=== PATIENT | male | born 1955 | race Caucasian/White ===

== ENCOUNTER 2018-06-16 11:45 | Inpatient (IN) | payer BC ==
[2018-07-11 12:58] VITALS: BMI 34.4
[2018-07-17] MEDS ORDERED: MELOXICAM 7.5 MG TAB PO ONE (05:00)
[2018-07-17] MEDS ORDERED: ACETAMINOPHEN TAB 500 MG TAB PO ONE (05:00)
[2018-07-17] MEDS ORDERED: MIDAZOLAM (PF) 2 MG/2 ML VIAL IV PRN (07:10)
[2018-07-17] MEDS ORDERED: HYDROmorphone 0.5 MG/0.5 ML SYRINGE IVP PRN ×4 (07:10→14:52)
[2018-07-17] MEDS ORDERED: SCOPOLAMINE 1.5MG/72HR PATCH TRANSDERM ONE (07:10)
[2018-07-17] MEDS ORDERED: DEXAMETHASONE SOD PHOSPHATE 10 MG/ML 1 ML VIAL IV ONE (07:10)
[2018-07-17] MEDS ORDERED: ONDANSETRON 4 MG/2 ML VIAL IVP ONE (07:10)
[2018-07-17] MEDS ORDERED: ROPIVACAINE 246.25 MG, EPINEPHrine 0.5 MG, KETOROLAC 30 MG, cloNIDine HCL/PF 80 MCG, WA... MISCELLANE ONE ×5 (10:28)
[2018-07-17] MEDS ORDERED: LACTATED RINGERS 1,000 ML IV ONE (12:51)
[2018-07-17] MEDS ORDERED: fentaNYL (PF) 50 MCG/ML 2 ML AMP IVP ONE (13:20)
[2018-07-17] MEDS ORDERED: ROPIVACAINE 1,100 MG, SODIUM CHLORIDE 0.9% 500 ML 330 ML MISCELLANE PRN ×2 (13:45)
--- NOTE | 2018-07-17 13:48 | P.ONQ ---
Anesthesiology Proc Note - PNB - Peripheral Nerve Block Performed Left Adductor Canal Infusion Time Out Performed: Yes Procedure Start Time: 13:25 Procedure Stop Time: 13:38 Indication: Acute Post-Operative Pain, Analgesia, Requested by physician Sedation Type: Sedate with meaningful contact maintained Preparation: Sterile Dressing Position: Supine Catheter: Indwelling Needle Size: 100mm (4") Needle Gauge: 20 Technique: Ultrasound Injectate: 0.5% Ropivacaine (see comment for volume) Blood Aspirated: No Pain Paresthesia on Injection Noted: No Resistance on Injection: Normal Events: Uneventful and Well Tolerated (30 ml solution)
[2018-07-17] MEDS ORDERED: LIDOCAINE 1% INJ 10MG/ML (20 ML MDV) ONE (14:45)
[2018-07-17] MEDS ORDERED: ceFAZolin 3,000 MG in SODIUM CHLORIDE 0.9% IRRIGATIO 3,000 ML IRRIGATION ONE (14:45)
[2018-07-17] MEDS ORDERED: SODIUM CHLORIDE 0.9% 100 ML BAG ONE (14:45)
[2018-07-17] MEDS ORDERED: PROPOFOL 10 MG/ML 20 ML VIAL IV ONE (14:45)
[2018-07-17] MEDS ORDERED: MIDAZOLAM 2 MG/2 ML VIAL ONE (14:45)
[2018-07-17] MEDS ORDERED: TRANEXAMIC ACID 1,000 MG/10 ML VIAL ONE (14:45)
[2018-07-17] MEDS: ceFAZolin IN SWFI 2 GM/20 ML SYRINGE IVP ONE ×2 (14:48→15:03)
[2018-07-17] MEDS ORDERED: BISACODYL 10 MG SUPP RECTAL PRN (14:52)
[2018-07-17] MEDS ORDERED: DIAZEPAM 5 MG TAB PO PRN (14:52)
[2018-07-17] MEDS ORDERED: HYDROcodone/APAP 5-325MG 1 EACH TAB PO PRN (14:52)
[2018-07-17] MEDS ORDERED: hydrOXYzine PAMOATE 25 MG CAP PO PRN (14:52)
[2018-07-17] MEDS ORDERED: NALOXONE 0.4 MG/ML 1 ML VIAL IV PRN (14:52)
[2018-07-17] MEDS ORDERED: ONDANSETRON 4 MG/2 ML VIAL IVP PRN (14:52)
[2018-07-17] MEDS ORDERED: NA PHOS,M-B/NA PHOS,DI-BA 133 ML ENEMA RECTAL PRN (14:52)
[2018-07-17] MEDS ORDERED: MAGNESIUM HYDROXIDE 2,400 MG/10 ML CUP PO PRN (14:52)
[2018-07-17] MEDS ORDERED: TRANEXAMIC ACID 1,000 MG in SODIUM CHLORIDE 0.9% 50 ML IVPB ONE ×4 (15:15)
--- NOTE | 2018-07-17 16:05 | P.OP ---
Date of Procedure: 07/17/18 Preoperative Diagnosis: Severe osteoarthritis left knee Postoperative Diagnosis: Severe osteoarthritis left knee Procedure(s) Performed: Left total knee arthroplasty Implants: Dacosta [employer] Nephew Journey II CR Oxinium cruciate retaining femoral component size 7, left Dac[employer] Journey left nonporous tibial baseplate size 6 Dac[employer] Journey II, XLPE CR articular insert, size 11 mm, Size 5-6 left Dac[employer] Journey BCS resurfacing oval patellar component, 32 mm All components were cemented using Palacos R bone cement.. The articulation is Oxinium on polyethylene. Anesthesia: spinal Surgeon: Jonathon Xiao Table Inspector #1: Aleisha Arriaga Estimated Blood Loss (ml): 50 Pathology: other (Bone and cartilage) Condition: stable Disposition: PACU Indications for Procedure: After failure of conservative treatment we discussed the surgical and nonsurgical treatment options at length. Patient wishes to proceed with a total knee arthroplasty. Complications specific to this procedure were discussed at length, including but not limited to infection, bleeding, stiffness , and nerve injury. Patient is aware of all these complications and informed consent was obtained Operative Findings: The operative findings are consistent with severe osteoarthritis of the left knee Description of Procedure: Patient was seen in the preoperative area consent was reviewed and operative site was marked with a skin marker. An adductor canal pain catheter was placed by anesthesia in the preoperative area. Patient was then brought to the operating room and given preoperative antibiotics intravenously. A spinal anesthetic was administered by the anesthesia department. A tourniquet was placed on the upper thigh and the lower extremity was prepped and draped in usual sterile fashion. A gram of transexamic acid was given. A universal timeout was then performed which confirmed the patient's name, surgical site, ALLERGIES, and consent. The lower extremity was then exsanguinated and tourniquet was inflated to 250 mmHg. A standard and anterior midline approach to the knee was performed. The skin and subcutaneous tissue was dissected down to the patellar tendon. A medial parapatellar arthrotomy was then performed. The knee was then extended, the patellar was everted, and the knee was again flexed. Anterior horns of both menisci were excised, and a release was performed to the posterior medial aspect of the knee. On gross visual inspection, there was complete loss of articular cartilage in the medial and patellofemoral joint spaces. There was also significant cartilage damage in the lateral compartment. There were multiple periarticular osteophytes which were then removed with a Ronguer. The femoral canal was then opened with the appropriate drill, and the intramedullary femoral cutting guide was then placed and set for 5 of valgus. The distal femoral cutting block was then pinned in place, and the distal femur was then cut. The cutting block was then removed and the cut was checked for flatness. Next, the sizing guide was then placed and set for 3 external rotation based off of the epicondylar axis and Whitesides line. After the femur was sized, the appropriate 4-in-1 cutting block was then pinned in place. The anterior condyles were cut without notching. The posterior and chamfer cuts were performed while protecting the collateral ligaments. The cutting block was then removed, and the femoral canal was plugged with autologous bone. Attention was then directed to the tibia. The remaining ACL was removed with a Ronguer, and the tibia was then gently subluxed forward with a large bent knee retractor. Any remaining menisci was excised. The posterior lateral corner was cauterized in order to cauterize the lateral geniculate artery. The extra medullary tibial cutting guide was then placed, set for the appropriate rotation , slope, and depth of resection. The proximal tibia cutting guide was then pinned in place. Proximal tibia was then cut and sized. Next trials were then placed with the appropriate-sized insert. The knee was able to fully extend and flex to 130 and was stable throughout all range of motion. The knee was then extended, patella everted. Patella was then measured, and then using an osteotomy guide, the patella was cut at the appropriate level. The patella was then measured and drilled and the patella trial was then placed. The knee was then taken through range of motion with the patella trial and the patella tracked normally. The knee was then extended patella trial was then removed and the patella was everted. Knee was then flexed and lug holes were drilled through the femoral trial and the femoral trial was then removed. The tibial was then exposed, and the tibial broach guide was then pinned in place after it was set for the appropriate rotation to allow for the most coverage without overhang. The tibia was then reamed and broached. The cut surfaces of bone were then irrigated with pulsatile lavage. The posterior structures were injected with the ropivacaine solution. The knee was also irrigated with Irrisept solution. The components were then opened, the cement was mixed, and the components were then cemented in place. The cement was allowed to harden with the knee in full extension. While the cement was hardening, the remaining soft tissues were then injected with a ropivacaine solution, which consisted of 246.25 mg of ropivacaine, 0.5 mg of epinephrine, 30 mg of Toradol, 80 g of clonidine, and 48.45 mL of sterile water, for a total of 100 mL of fluid injected. After the cemented hardened. The tourniquet was released, and hemostasis was obtained. A second gram of transexamic acid was given. The knee was again irrigated. The knee was again taken through range of motion and found to be stable throughout all range of motion of 0-130 , and the patella tracked normally. The fascia was then closed with #2 strata fix suture. The subcutaneous tissue was closed with 3-0 Vicryl and 3-0 strata fix. Dermabond glue was used for the skin and placed with the knee in flexion. The patient was placed in a sterile silver dressing. Patient was then transferred to recovery room in stable condition. The supply chain assistant SYMONE Dao was required due the complexity surgery and the need for a skilled surgical elastic knitter. She assisted in positioning, draping, retraction, and closure of the wound.
[2018-07-17] MEDS: SODIUM CHLORIDE 0.9% 1,000 ML IV SCH (17:37)
--- NOTE | 2018-07-17 17:41 | XR ---
PROCEDURE: XR knee limited LT - 2V DATE AND TIME: 07/17/2018 5:16 PM CLINICAL INDICATION: PHH; Evaluation for Postop abnormality and alignment TECHNIQUE: Department protocol COMPARISON: None FINDINGS: The left TKR appears anatomic in its position and alignment. Postprocedure soft tissue terry ges noted. No unexpected acute findings. Atherosclerotic calcifications appreciated. IMPRESSION: Postoperative 2 views.
[2018-07-17] MEDS: LACTATED RINGERS 1,000 ML IV SCH (18:07)
[2018-07-17] MEDS ORDERED: ATORVASTATIN 80 MG TAB PO SCH (21:00)
[2018-07-17] MEDS ORDERED: SENNOSIDES-DOCUSATE SODIUM 1 EACH TAB PO SCH (21:00)
[2018-07-17] MEDS ORDERED: METOPROLOL SUCCINATE (ER) 25 MG TAB.ER.24H PO SCH (21:00)
--- NOTE | 2018-07-18 00:15 | CONS ---
CONSULTATION DATE OF CONSULTATION: 07/17/2018. REASON FOR CONSULTATION: Medical management, requested by Dr. Xiao. CONSULTATION: This is a very pleasant 62-year-old patient who follows with Dr. Caban. Chronic stable medical conditions include hypertension, hyperlipidemia, coronary artery disease. The patient's last stent was about 5 years ago. The patient follows with Dr. Munroe out of [facility] in [place]. The patient had a stress test over a month ago that was fine. The patient did undergo left total knee arthroplasty. Pain is controlled. No nausea or vomiting. No chest pain or short of breath. Did have his supper. REVIEW OF SYSTEMS: CONSTITUTIONAL: None. HEENT: None. RESPIRATORY: None. CARDIOVASCULAR: None. GASTROINTESTINAL: None. GENITOURINARY: None. MUSCULOSKELETAL: Pain in joints. DERMATOLOGICAL: None. HEMATOLOGIC: None. LYMPHATICS: None. PSYCHIATRY: None. N NEUROLOGICAL: None. PAST MEDICAL HISTORY: Atrial fibrillation now in sinus rhythm, hypertension, hyperlipidemia, primary osteoarthritis, obstructive sleep apnea does not use a CPAP machine gives him trouble, coronary artery disease with about 7 stents. PAST SURGICAL HISTORY: Cardiac cath with stent, varicose vein stripping. SOCIAL HISTORY: Does not smoke or drink alcohol. . 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 FAMILY HISTORY: Reviewed, noncontributory to presentation. HOME MEDICATIONS: 1. CO Q 10 100 mg p.o. daily. 2. Turmeric 500 mg p.o. daily. 3. Crestor 40 mg at bedtime. 4. Men's multivitamin 1 tablet p.o. daily. 5. Toprol-XL 25 mg at bedtime. 6. Hydrochlorothiazide 25 mg p.o. daily. 7. Vitamin D3, 4000 units p.o. daily. 8. Aspirin 81 mg at bedtime. 9. Eliquis 5 mg b.i.d. ALLERGIES: None. PHYSICAL EXAMINATION: Temperature 97.8, pulse 54, respirations 17, blood pressure 120/71, pulse 95 percent on 3 L. GENERAL APPEARANCE: Well built. BMI 34.4, lying in bed comfortable. EYES: Pupils equal. Conjunctivae normal. HEENT: External appearance of nose and ears normal. Oral cavity normal. NECK: JVD not raised. Mass not palpable. Respiratory effort normal. LUNGS: Fair air entry. CARDIOVASCULAR: 1st and 2nd sounds normal. No edema. ABDOMEN: Soft, nontender. Liver and spleen not palpable. LYMPHATIC: No lymph node palpable in the neck or axillae. PSYCHIATRY: Alert and oriented x3. Mood and affect normal. NEUROLOGIC: Pupils equal. Cranial nerves grossly intact. Power and sensation grossly intact. MUSCULOSKELETAL: Dressing over the left knee. Evidence of OA, especially in the hands. INVESTIGATIONS: Lab work from earlier in the month, white count 18, hemoglobin 15.6, potassium 3.8. BUN and creatinine normal. ASSESSMENT: 1. Left total knee arthroplasty. 2. History of atrial fibrillation for which patient is on Eliquis. 3. Essential hypertension. 4. Hyperlipidemia. 5. Primary osteoarthritis. 6. Obstructive sleep apnea does not use CPAP machine. 7. Coronary artery with a history of stents. Recent stress test was negative. 8. Obesity; BMI 34. PLAN: Patient's home medications are resumed. The patient's Eliquis is to be resumed when okay with Dr. Xiao. Care was discussed with the patient. Questions were answered. Should follow up with his family doctor upon discharge. Thank you, Dr. Xiao. MMODL / IJN: [id number] /
[2018-07-18] MEDS: ceFAZolin IN SWFI 2 GM/20 ML SYRINGE IVP SCH ×2 (00:25→08:20)
[2018-07-18] MEDS: HYDROcodone/APAP 5-325MG 1 EACH TAB PO PRN ×2 (00:36→08:19)
--- NOTE | 2018-07-18 07:13 | P.PN ---
Progress Note - Text Progress Note Date: 07/18/18 The patient is status post[ 1] adductor canal catheter placement. The catheter was placed for postoperative pain control, status post total [left knee] arthroplasty. Ropivacaine 0.2% is infusing at[5 ] mLs per hour. The patient has no complaints of[ left ] lower extremity numbness or weakness. Patient's VAS score is[ 4]-10. Assessment: Patient's adductor canal catheter is in place and working appropriately. Plan: continue infusion and adjust it as needed.
[2018-07-18 08:19] VITALS: BP 137/76; PULSE 51; RESP 17; TEMP 97.4
[2018-07-18] MEDS ORDERED: APIXABAN 5 MG TAB PO SCH (09:00)
[2018-07-18 09:15] LABS: Basophils % (A) 0 %; Eosinophils % (A) 0 %; HCT 44.2 % (39.0-53.0); HGB 13.7 gm/dL (13.0-17.5); Lymphocytes # (A) 1.2 k/uL (1.0-4.8); Lymphocytes % (A) 9 %; MCH 29.9 pg (25.0-35.0); MCHC 31.1 g/dL (31.0-37.0); MCV 96.3 fL (80.0-100.0); Mean Platelet Volume 6.6; Monocytes # (A) 0.7 k/uL (0-1.0); Monocytes % (A) 5 %; Neutrophils # (A) 10.3 k/uL (1.3-7.7); Neutrophils % (A) 84 %; Platelet Count 312 k/uL (150-450); RBC 4.59 m/uL (4.30-5.90); RDW 13.3 % (11.5-15.5); WBC 12.3 k/uL (3.8-10.6)
--- NOTE | 2018-07-18 09:51 | P.DS ---
Providers Date of admission: 07/17/18 12:25 Expected date of discharge: 07/18/18 Attending physician: Jonathon Xiao Consults: 07/17/18 14:52 Consult Physician Routine Consulting Provider: Erich Estrada Consult Reason/Comments: medical management Do you want consulting provider notified?: Yes Primary care physician: Hernán Caban - Discharge Diagnosis(es) (1) Primary osteoarthritis of left knee Current Visit: Yes Status: Acute (2) Status post total left knee replacement Current Visit: Yes Status: Acute Hospital Course: This is a 62-year-old male with known history of degenerative arthritis of the left knee. The patient presents for evaluation. After discussion and consideration patient elects to proceed with total knee arthroplasty. The patient is seen preoperatively by Dr. Xiao and medically cleared for surgery by their primary care physician. Patient is admitted to [facility] on 07/17/2018 for total knee arthroplasty. The procedures performed without complication or sequelae. The patient is doing well postoperatively. Labs and vital signs are stable on day of discharge. On day of discharge patient's knee incision is healing well. There is minimal erythema. There is no drainage noted at this time. There is minimal soft tissue swelling to the knee. Patient has full foot and ankle motion without difficulty or pain. Neurovascular status to the left lower extremity is intact. Patient is discharged home in good condition. Please see med rec for accurate list of home medications. Plan - Discharge Summary Discharge Rx Participant: Yes New Discharge Prescriptions: New HYDROcodone/APAP 5-325MG [Euclid 5-325] 1 - 2 tab PO Q4-6H PRN #84 tab PRN Reason: Pain Sennosides [Senokot] 1 tab PO BID #60 tablet No Action Aspirin 81 mg PO HS Rosuvastatin Calcium [Crestor] 40 mg PO HS Metoprolol Succinate (ER) [Toprol Xl] 25 mg PO HS Hydrochlorothiazide [Hydrodiuril] 25 mg PO DAILY Apixaban [Eliquis] 5 mg PO BID Cholecalciferol [Vitamin D3] 4,000 unit PO DAILY Ubidecarenone [Co Q-10] 100 mg PO DAILY Turmeric Root Extract [Turmeric] 500 mg PO DAILY Multivitamin [Men's Multi-Vitamin] 1 tab PO DAILY Discharge Medication List Apixaban [Eliquis] 5 mg PO BID 07/11/18 [History] Aspirin 81 mg PO HS 07/11/18 [History] Cholecalciferol [Vitamin D3] 4,000 unit PO DAILY 07/11/18 [History] Hydrochlorothiazide [Hydrodiuril] 25 mg PO DAILY 07/11/18 [History] Metoprolol Succinate (ER) [Toprol Xl] 25 mg PO HS 07/11/18 [History] Multivitamin [Men's Multi-Vitamin] 1 tab PO DAILY 07/11/18 [History] Rosuvastatin Calcium [Crestor] 40 mg PO HS 07/11/18 [History] Turmeric Root Extract [Turmeric] 500 mg PO DAILY 07/11/18 [History] Ubidecarenone [Co Q-10] 100 mg PO DAILY 07/11/18 [History] HYDROcodone/APAP 5-325MG [Euclid 5-325] 1 - 2 tab PO Q4-6H PRN #84 tab 07/18/18 [ Rx] Sennosides [Senokot] 1 tab PO BID #60 tablet 07/18/18 [Rx] Follow up Appointment(s)/Referral(s): Jonathon Xiao DO [Doctor of Osteopathic Medicine] - 2 Weeks Ambulatory/Diagnostic Orders: Continuous Passive Motion (CPM) Machine [DME.AMB1] Time Frame: 3 Weeks, Location : None Selected Activity/Diet/Wound Care/Special Instructions: Weightbearing as tolerated with a walker. CPM 5-6h daily. Leave dressing intact. May be removed by home care nurse in 10 days. May shower with dressing on. Please follow up with [facility] and call with any questions or concerns, . Discharge Disposition: HOME WITH HOME HEALTH SERVICES
[2018-07-18] MEDS: SODIUM CHLORIDE 0.9% 1,000 ML IV SCH (10:36)
[2018-07-18] MEDS: LACTATED RINGERS 1,000 ML IV SCH (10:36)
[2018-07-18] MEDS ORDERED: HYDROmorphone 1 MG/ML 1 ML SYRINGE IVP PRN (10:45)
--- NOTE | 2018-07-19 07:29 | PN ---
PROGRESS NOTE DATE OF SERVICE: 07/18/2018 PRESENTING COMPLAINT: Left knee surgery. INTERVAL HISTORY: Patient is status post left knee surgery, some pain is present. No nausea, vomiting, doing well; tolerating a diet. Did work with physical therapy. REVIEW OF SYSTEMS: Done for constitutional, cardiovascular, GI, pulmonary; relevant findings as above. CURRENT MEDICATIONS: Reviewed. PHYSICAL EXAMINATION: Temperature 97.4, pulse 51, respiration 17, blood pressure 137/76, pulse ox 98% on room air. GENERAL APPEARANCE: Sitting up, comfortable. EYES: Pupils equal, conjunctivae are normal. NECK: JVD not raised. Mass not palpable. RESPIRATORY: Effort normal. Lungs are clear. CARDIOVASCULAR: First and second sounds normal, no edema. ABDOMEN: Soft, nontender. Liver and spleen not palpable. PSYCHIATRY: Alert and oriented x3. Mood and affect normal. INVESTIGATIONS: White count 12.3, hemoglobin 13.7. ASSESSMENT: 1. Left total knee arthroplasty. 2. History of atrial fibrillation for which the patient is on Eliquis. 3. Essential hypertension. 4. Hyperlipidemia. 5. Primary osteoarthritis. 6. Obstructive sleep apnea, does not use CPAP machine. 7. Coronary artery disease with history of stent. Recent stress test was negative. 8. Obesity; body mass index 34. PLAN: Patient is stable. Continue current medication and treatment plan. Eliquis was resumed. This patient was seen by me yesterday on 07/18/2018. Thank you, Dr. Xiao. MMYOSELINL / AARONN: [id number] /
== END 2018-07-18 13:19 | disposition home health service (06) | DRG 470 ==
LOC: 2ORMAIN 07-17 12:25 → 4SSUR 07-17 17:22
PROVIDERS: ADMIT Orthopaedic Surgery; ATTEND Orthopaedic Surgery
PROC: 0SRD069 Replacement of Left Knee Joint with Oxidized Zirconium on Polyethylene Synthetic Substitute, Cemented, Open Approach (ICD-10-PCS; principal; 2018-07-17 14:20)
DX: M17.12 Unilateral primary osteoarthritis, left knee (principal); I48.0 Paroxysmal atrial fibrillation; E66.9 Obesity, unspecified; E78.5 Hyperlipidemia, unspecified; G47.33 Obstructive sleep apnea (adult) (pediatric); I10 Essential (primary) hypertension; I25.10 Atherosclerotic heart disease of native coronary artery without angina pectoris; I25.2 Old myocardial infarction; F17.210 Nicotine dependence, cigarettes, uncomplicated; Z68.34 Body mass index [BMI] 34.0-34.9, adult; Z79.01 Long term (current) use of anticoagulants; Z79.82 Long term (current) use of aspirin; Z79.899 Other long term (current) drug therapy; Z95.5 Presence of coronary angioplasty implant and graft; Z83.3 Family history of diabetes mellitus; Z82.49 Family history of ischemic heart disease and other diseases of the circulatory system; Z82.5 Family history of asthma and other chronic lower respiratory diseases; Z82.0 Family history of epilepsy and other diseases of the nervous system
CPT/HCPCS: 85025; 88300

== ENCOUNTER → 2018-06-30 | Outpatient (CLI) | payer BC ==
[2018-06-30 13:08] LABS: HCT 47.6 % (39.0-53.0); HGB 15.6 gm/dL (13.0-17.5); MCH 30.3 pg (25.0-35.0); MCHC 32.7 g/dL (31.0-37.0); MCV 92.4 fL (80.0-100.0); Mean Platelet Volume 6.6; Platelet Count 273 k/uL (150-450); RBC 5.15 m/uL (4.30-5.90)
[2018-06-30 13:14] LABS: Partial Thromboplastin Time 27.9 sec (22.0-30.0); Prothrombin Time 10.7 sec (9.0-12.0)
[2018-06-30 13:43] LABS: Appearance,Urine Clear (Clear); Bilirubin,Urine Negative (Negative); Blood,Urine Negative (Negative); Color,Urine Yellow; Glucose,Urine (UA) Negative (Negative); Ketones,Urine Negative (Negative); Leukocyte Esterase,Urine Negative (Negative); Nitrite,Urine Negative (Negative); Protein,Urine Trace (Negative); Specific Gravity,Urine 1.025 (1.001-1.035); Urobilinogen,Urine <2.0 mg/dL (<2.0)
[2018-06-30 18:43] LABS: Albumin 4.6 g/dL (3.80-4.90); Albumin/Globulin Ratio 2.19 (1.20-2.10); Anion Gap 9.2 mmol/L (4.00-12.00); Calcium 9.1 mg/dL (8.7-10.3); Carbon Dioxide 27.8 mmol/L (21.6-31.8); Globulin 2.1 g/dL (1.6-3.3); Potassium 3.8 mmol/L (3.5-5.5); Total Bilirubin 0.4 mg/dL (0.2-1.2); Total Protein 6.7 g/dL (6.2-8.2)
== END | disposition home or self-care (01) ==
LOC: LABWHC1 12:21
PROVIDERS: ATTEND Orthopaedic Surgery
DX: Z01.812 Encounter for preprocedural laboratory examination (principal); M17.12 Unilateral primary osteoarthritis, left knee
CPT/HCPCS: 36415; 80053; 81003; 85027; 85610; 85730; 87070

== ENCOUNTER 2022-06-10 12:21 | Day surgery (SDC) | payer BC ==
[~2022-06-10 12:21] MED LIST: SODIUM CHLORIDE 0.9% 1,000 ML IV SCH
[2022-06-10] MEDS ORDERED: fentaNYL (PF) 50 MCG/ML 2 ML AMP ONE (13:43)
[2022-06-10] MEDS ORDERED: NEOSTIGMINE 1 MG/ML 10 ML VIAL ONE (13:43)
[2022-06-10] MEDS ORDERED: LIDOCAINE 2% INJ 20 MG/ML (2 ML VIAL) ONE (13:43)
[2022-06-10] MEDS ORDERED: ROCURONIUM 10 MG/ML (5 ML VIAL) IV ONE (13:43)
[2022-06-10] MEDS ORDERED: SUCCINYLCHOLINE CHLORIDE 200 MG/10 ML VIAL IV ONE (13:43)
[2022-06-10] MEDS ORDERED: PHENYLEPHRINE-0.9% NACL SYG 1,000 MCG/10 ML SYRINGE ONE (13:43)
[2022-06-10] MEDS ORDERED: HEPARIN SODIUM,PORCINE 10,000 UNIT/ML 1 ML VIAL ONE (13:43)
[2022-06-10] MEDS ORDERED: MIDAZOLAM 2 MG/2 ML VIAL ONE (13:43)
[2022-06-10] MEDS ORDERED: GLYCOPYRROLATE 0.2 MG/ML 2 ML VIAL ONE (13:43)
[2022-06-10] MEDS ORDERED: ISOPROTERENOL 250 MCG/1.25 ML SYR IV ONE (13:43)
[2022-06-10] MEDS ORDERED: PROPOFOL 10 MG/ML 20 ML VIAL IV ONE (13:43)
--- NOTE | 2022-06-10 14:03 | P.HPCAR ---
History of Present Illness This is Dr. Avery dictating an H/P on this patient The patient was interviewed and examined IMPRESSION / ASSESSMENT: Recurrent breakthrough episodes of atrial fibrillation/atrial tachycardia on Multaq History of paroxysmal atrial fibrillation with RVR prior to that Known coronary artery disease status post stenting many years back Normal LV function Normal TSH PLAN: Diagnostic EP study and A. fib ablation HPI Patient continues to experience recurrent episodes of palpitations despite Multaq line he had atrial fibrillation, paroxysmal and initially treated with Multaq He continues to have breakthrough episodes No recent fever chills cough expectoration no syncope ROS: No fever chills or rigors, no cough, phlegm or expectoration, no nausea, vomiting or diarrhea, no hematuria, dysuria, no musculoskeletal complaints, no strokes or seizures, no skin lesions. EXAMINATION: Pulse rate 152 beats a minute, blood pressure 125/88 mmHg afebrile Heart sounds tachycardic irregular Breath sounds clear no rhonchi no crackles Abdomen soft nontender No JVD No lower extremity edema REVIEW OF LABS, ECG & MEDICAL DATA Medications reviewed and include rosuvastatin metoprolol succinate 25 mg daily at bedtime and ELIQUIS 5 mg twice daily Multaq has been discontinued Physical Exam Vitals: Vital Signs Temp Pulse Resp BP Pulse Ox 06/10/22 13:00 98.1 F 152 H 16 125/88 97 Intake and Output 06/09/22 06/10/22 06/10/22 22:59 06:59 14:59 Intake Total 50 Balance 50 Intake: IV 50 Other: Weight 98.4 kg Past Medical History Past Medical History: Atrial Fibrillation, Hyperlipidemia, Hypertension, Osteoarthritis (OA), Sleep Apnea/CPAP/BIPAP Additional Past Medical History / Comment(s): hx. diverticulitis, supposed to use CPAP, see Dr Avery H & P History of Any Multi-Drug Resistant Organisms: None Reported Past Surgical History: Heart Catheterization With Stent Additional Past Surgical History / Comment(s): 7 stents total, varicose vein stripping, colonoscopy Past Anesthesia/Blood Transfusion Reactions: No Reported Reaction Date of Last Stent Placement:: 2013 Smoking Status: Former smoker - Past Family History Mother Family Medical History: No Reported History Physical Examination Vital Signs Temp Pulse Resp BP Pulse Ox 06/10/22 13:00 98.1 F 152 H 16 125/88 97 Intake and Output 06/09/22 06/10/2222 22:59 06:59 14:59 Intake Total 50 Balance 50 Intake: IV 50 Other: Weight 98.4 kg Results Current Medications Generic Name Dose Route Start Last Admin Trade Name Cayden PRN Reason Stop Dose Admin Lactated Ringer's 1,000 mls @ 20 mls/hr 06/10/22 06:36 Lactated Ringers IV 07/10/22 06:37 .Q24H DUNG Sodium Chloride 1,000 mls @ 50 mls/hr 06/10/22 06:36 06/10/22 13:00 Saline 0.9% IV 07/10/22 06:37 50 mls .Q20H DUNG Administration Intake and Output 06/09/22 06/10/22 06/10/22 22:59 06:59 14:59 Intake Total 50 Balance 50 Intake: IV 50 Other: Weight 98.4 kg Patient Weight 06/11/22 06:59 Weight 98.4 kg
[2022-06-10] MEDS ORDERED: HEPARIN SOD,PORK IN 0.45% NACL 25,000 UNIT in 0.45% NACL 1 250ML.BAG IV ONE (14:20)
[2022-06-10] MEDS ORDERED: LIDOCAINE 1% INJ 10MG/ML (30 ML VIAL-PF) SQ ONE (14:23)
[2022-06-10] MEDS ORDERED: HEPARIN SODIUM (1,000 UNIT/ML) 1,000 UNIT in SODIUM CHLORIDE 0.9% 1,000 ML IRRIGATION ONE (16:13)
[2022-06-10] MEDS ORDERED: IOPAMIDOL-370 100ML BTL INJ ONE (16:43)
[2022-06-10] MEDS ORDERED: ACETAMINOPHEN IV (For NPO) 1,000 MG in EMPTY BAG 1 BAG IVPB ONE (18:07)
--- NOTE | 2022-06-10 18:11 | P.PRLE ---
RE: Kasi Hernandez Dear Dr. Caban Mr. Grayson has paroxysms of atrial fibrillation that have not responded to Multaq He underwent an A. fib ablation Following that he was found to be in typical atrial flutter and he underwent successful ablation for this to sinus rhythm At this time I'm recommending that he stopped metoprolol but continue ELIQUIS as well as rosuvastatin His recent stress test did not show any evidence for ischemia and his LV function is normal On intracardiac echo he had evidence of old pericarditis with mild thickening of the pericardium over the base of the LV and this may have been the exacerbating factor for atrial fibrillation Thank you for entrusting me with the care of the patient Warm regards Sincerely Chetan Avery
--- NOTE | 2022-06-10 18:18 | P.EPPROC ---
- EP Procedure Note Electrophysiology Procedure Note: PROCEDURE A. fib ablation Mapping of atrial tachycardia and typical atrial flutter ablation DIAGNOSIS Paroxysmal Atrial fibrillation, symptomatic, refractory to therapy Sustained typical atrial flutter with RVR RESULT No left atrial appendage mass seen on intracardiac echo Left atrial enlargement, mildly thickened pericardium at the base of the left ventricle without pericardial effusion Successful A. fib ablation/pulmonary vein isolation of all veins using cryo- ablation Successful left atrial septal ablation Successful mapping and ablation of typical atrial flutter to sinus Complete entrance block in all 4 veins confirmed Bidirectional block across the atrial flutter No evidence for phrenic nerve injury Esophageal deflection YES, left-sided esophagus PROCEDURE DETAILS Patient was brought to the EP lab in a fasting state after obtaining written informed consent. Procedure performed under general anesthesia Esophagus was intubated. Esophageal temperature monitoring with circa catheter. Esophageal deflection with an endoscope to avoid hypothermia of the esophagus. After initial muscle relaxant use, muscle relaxants were not given thereafter in order to assess phrenic nerve during procedure. Patient prepped and draped as per protocol Cryo ablation-set up with standard preparation of the cryoablation tools done. Femoral Venous access obtained on the right and left groins and sheaths placed Diagnostic catheters for the high right atrium, phrenic nerve stimulation and pacing, His bundle, coronary sinus placed Intracardiac echo catheter placed. Long sheath placed in the right atrium Left and right transseptal catheterization performed under intracardiac echo guidance. Intravenous heparin with aCT above 300 Later, catheter positioning and balloon positioning in the left atrium and pulmonary veins, under intracardiac echo guidance Diagnostic EP study with coronary sinus pacing and recording Baseline measurements: Tachycardia cycle length 234 ms, later sinus cycle length 1052 ms WA interval 146 seconds, QRS 86 and QT interval 400 ms AH 46 and HV 41 ms Sinus node recovery times at 605 100 ms were 1194 and 1282 ms. Corrected sinus recovery times abnormal AV node Wenckebach block in the baseline state 340 ms Height is Isuprel infused No atrial fibrillation after successful ablation AV node Wenckebach block improved to less than 200 ms No atrial arrhythmias induced at the end of the procedure Transseptal catheterization performed RA pressure 12/8/10 LA pressure 18/6/13 Transseptal catheterization performed with standard sheath. The cryoablation sheath was then placed with an over the wire exchange without any acute complications. The cryoablation balloon was placed in the office of each pulmonary vein and all 4 pulmonary veins were isolated. IV dye was injected to confirm occlusion. Goal: achieve complete occlusion of the pulmonary vein, achieve -30 degrees C at 30 seconds and achieve -40 degrees C at 60 seconds and a time to effect of less than 60 seconds. If not, the balloon was repositioned to obtain this result After completion of Cryoblation with durations from 180-240 seconds, entrance block was confirmed with the Attain circular catheter in a roving fashion around the antrum of the pulmonary veins Phrenic nerve pacing was performed from the SVC, right innominate vein area and diaphragm voltage was monitored. Diaphragmatic contractions were also monitored manually for strength of contraction. At the end of the procedure the Achieve catheter was once again used to check for entrance block Left atrial septal ablation performed with cryo balloon. Patient had a middle cardiac vein which was already isolated The balloon was placed outside this to achieve septal ablation successfully Phrenic nerve stimulation was performed to confirm diaphragmatic stimulation the end of the procedure Cine fluoroscopy was performed at the very end of the procedure to confirm movement of both diaphragms with inspiration and expiration The patient remained in an atrial tachycardia 3-D electro-anatomic mapping was performed, activation mapping of the left atrium as well as right atrium Entrainment mapping was then performed from the cava tricuspid isthmus and typical atrial flutter was proven RF ablation across the cava tricuspid isthmus resulted in termination of arrhythmia to sinus rhythm Complete line was made Bidirectional block was proven with differential pacing as well as with mapping of the split potentials along the line At the end of the procedure the patient was extubated Venous sheaths were removed and hemostasis assured with a closure device PROCEDURES PERFORMED Diagnostic EP study CS pacing and recording Left and right transseptal catheterization 3-D mapping for atrial arrhythmias Intracardiac echocardiography Pulmonary vein isolation with transseptal and comprehensive EPS, 22851 Drug infusion, +[id number] Linear ablation, left atrium, +[id number] Ablation of discrete arrhythmia focus, +[id number], typical atrial flutter ablation
[2022-06-10] MEDS: ATORVASTATIN 20 MG TAB PO SCH (22:06)
[2022-06-10] MEDS: APIXABAN 5 MG TAB PO SCH (22:06)
[2022-06-10] MEDS: LACTATED RINGERS 1,000 ML IV SCH ×2 (22:08→22:09)
[2022-06-11] MEDS ORDERED: ACETAMINOPHEN TAB 325 MG TAB PO PRN
[2022-06-11 03:47] VITALS: TEMP 98.1
[2022-06-11] MEDS: ATORVASTATIN 20 MG TAB PO SCH (06:51)
--- NOTE | 2022-06-11 08:06 | P.DS ---
Providers Attending physician: Chetan Avery Primary care physician: [facility] Course: Patient is doing well and he does have a little. Throat He denies any chest discomfort denies any shortness of breath No dizziness or lightheadedness He has ambulated in the room and has gone to the bathroom On examination blood pressure 20/70 3 mmHg pulse rate in the 60s afebrile Breath sounds are clear no rhonchi no crackles Heart sounds S1 and S2 are normal no murmurs or gallops Abdomen is soft Extremities are warm milligrams of healed well no hematoma Impression Paroxysmal atrial fibrillation with RVR and failed Multaq Persistent atrial flutter with RVR despite medical treatment Successful pulmonary vein isolation left atrial septal ablation and successful atrial flutter ablation Termination of atrial arrhythmias during ablation History of coronary artery disease status post stenting Recent stress test did not show any evidence for ischemia Plan Discharge home today Stop metoprolol Continue rosuvastatin and ELIQUIS Patient Condition at Discharge: Stable Plan - Discharge Summary Discharge Rx Participant: Yes New Discharge Prescriptions: Discontinued Metoprolol Succinate (ER) [Toprol Xl] 25 mg PO HS No Action Rosuvastatin Calcium [Crestor] 10 mg PO HS Apixaban [Eliquis] 5 mg PO BID Cholecalciferol [Vitamin D3] 2,000 unit PO DAILY Ubidecarenone [Co Q-10] 100 mg PO DAILY Turmeric Root Extract [Turmeric] 500 mg PO DAILY Multivitamin [Men's Multi-Vitamin] 1 tab PO DAILY L.acidoph,Paracasei, B.lactis [Probiotic] 1 each PO DAILY Discharge Medication List Apixaban [Eliquis] 5 mg PO BID 07/11/18 [History] Cholecalciferol [Vitamin D3] 2,000 unit PO DAILY 07/11/18 [History] Multivitamin [Men's Multi-Vitamin] 1 tab PO DAILY 07/11/18 [History] Rosuvastatin Calcium [Crestor] 10 mg PO HS 07/11/18 [History] Turmeric Root Extract [Turmeric] 500 mg PO DAILY 07/11/18 [History] Ubidecarenone [Co Q-10] 100 mg PO DAILY 07/11/18 [History] L.acidoph,Paracasei, B.lactis [Probiotic] 1 each PO DAILY 06/08/22 [History] Follow up Appointment(s)/Referral(s): Chetan Avery MD [STAFF PHYSICIAN] - 1 Week (Follow-up with Kristen Dacosta/Dr. Avery in 7-10 days) Activity/Diet/Wound Care/Special Instructions: Post EP study - Ablation instructions 1. Keep access sites dry for 2 days. 2. No heavy lifting or straining for 2 days. 3. Avoid bending the hips repeatedly for 2 days. 4. You may go up and down stairs slowly Call if the following is noted 1. Bleeding, increasing swelling or pain at the access sites. 2. Increasing chest discomfort, especially upon taking a deep breath. 3. Increasing shortness of breath, at rest or with exertion. 4. Undue cough / phlegm 5. Difficulty or pain while swallowing. 6. Pain or change in color in the extremities. 7. Fever, chills, rigors. 8. Increasing headache or neurologic symptoms. 9. Dizziness, fainting, palpitations Stop metoprolol Continue rosuvastatin Continue ELIQUIS Stop Multaq Discharge Disposition: HOME SELF-CARE
[2022-06-11 08:08] VITALS: BP 137/84; PULSE 61; RESP 18
[2022-06-11] MEDS: APIXABAN 5 MG TAB PO SCH (09:40)
[2022-06-11 12:23] LABS: Chol/HDL Ratio 3.25 Ratio; LDL Cholesterol,Calculated 73.9 mg/dL (0.0-131.0)
== END 2022-06-11 12:57 | disposition home or self-care (01) ==
LOC: CATHEP 12:21 → 6NMEDSUR 17:42 → CATHEP 06-11 12:57
PROVIDERS: ATTEND Internal Medicine Clinical Cardiac Electrophysiology
DX: I48.0 Paroxysmal atrial fibrillation (principal); I25.10 Atherosclerotic heart disease of native coronary artery without angina pectoris; E78.5 Hyperlipidemia, unspecified; I10 Essential (primary) hypertension; M19.90 Unspecified osteoarthritis, unspecified site; G47.30 Sleep apnea, unspecified; Z87.891 Personal history of nicotine dependence; Z95.5 Presence of coronary angioplasty implant and graft; Z99.89 Dependence on other enabling machines and devices; Z79.899 Other long term (current) drug therapy
CPT/HCPCS: 93623; 93656; 80061; 93657; C1759; C1894 ×2; C1769 ×4; C1760; C1730 ×2; C1893; C1733; C1766; C1732; J2250; J0330; J1644 ×3; J2710; J2001 ×2; J3010; J0131; J2370; J2704; Q9967; 93613; 93662

== ENCOUNTER 2022-06-12 13:34 | Inpatient (IN) | payer BC, MEDICARE ==
[2022-06-12] MEDS ORDERED: NITROGLYCERIN OINT 1 INCH/GM PACKET TOPICAL STA (13:51)
[2022-06-12] MEDS ORDERED: DILTIAZEM 125 MG in SODIUM CHLORIDE 0.9% 100 ML IV SCH (14:00)
--- NOTE | 2022-06-12 14:46 | ED ---
Chest Pain HPI - General Chief Complaint: Chest Pain Stated Complaint: Afib Source: patient, EMS Mode of arrival: EMS Limitations: no limitations - History of Present Illness Initial Comments: This 66-year-old male presents early this morning to [facility] with complaints of some left-sided pleuritic chest pain. He states that it only hurts if he takes a deep breath. He describes it as a sharp pain. He denies any fevers or chills. He states that he has occasional shortness of breath but only with a deep inspiration. He came on in the middle of the night and woke him up. He just had a cardiac ablation done yesterday at [facility] for treatment of his atrial fibrillation. He denies any leg pain or swelling or history of DVT or PE. He does have a history of previous coronary artery disease. He had full workup at [facility] and they found that he was going in and out of atrial fibrillation. He is started on a Cardizem drip which is continued. The patient also had an elevated troponin at 9 which decreased to 7 on recheck and this likely could be related to his recent cardiac ablation. His d-dimer was elevated and he had a CT angiogram of his chest which did not show any evidence of pulmonary embolism but there is some atelectasis versus infiltrate left lower lobe. The patient was transferred to her facility for further cardiac evaluation and continued treatment. He denies any other complaints or modifying factors. Upon evaluation here he states that he feels much improved and that the pleuritic pain is still present with deep inspiration but better than when he initially presented to [place]. - Related Data Home Medications Medication Instructions Recorded Confirmed Apixaban [Eliquis] 5 mg PO BID 07/11/18 06/12/22 Multivitamin [Men's Multi-Vitamin] 1 tab PO DAILY 07/11/18 06/12/22 Turmeric Root Extract [Turmeric] 500 mg PO DAILY 07/11/18 06/12/22 Ubidecarenone [Co Q-10] 100 mg PO DAILY 07/11/18 06/12/22 L.acidoph,Paracasei, B.lactis 1 cap PO DAILY 06/08/22 06/12/22 [Probiotic] Cholecalciferol [Vitamin D3 (25 50 mcg PO DAILY 06/12/22 06/12/22 Mcg = 1000 Iu)] Rosuvastatin [Crestor] 20 mg PO HS 06/12/22 06/12/22 Allergies Allergy/AdvReac Type Severity Reaction Status Date / Time No Known Allergies Allergy Verified 06/12/22 14:56 Review of Systems ROS Statement: Those systems with pertinent positive or pertinent negative responses have been documented in the HPI. ROS Other: All systems not noted in ROS Statement are negative. Past Medical History Past Medical History: Atrial Fibrillation, Hyperlipidemia, Hypertension, Osteoarthritis (OA), Sleep Apnea/CPAP/BIPAP Additional Past Medical History / Comment(s): hx. diverticulitis, supposed to use CPAP, see Dr Avery H & P History of Any Multi-Drug Resistant Organisms: None Reported Past Surgical History: Heart Catheterization With Stent Additional Past Surgical History / Comment(s): 7 stents total, varicose vein stripping, colonoscopy Past Anesthesia/Blood Transfusion Reactions: No Reported Reaction Date of Last Stent Placement:: 2013 Past Psychological History: No Psychological Hx Reported Smoking Status: Former smoker Past Alcohol Use History: Daily Additional Past Alcohol Use History / Comment(s): smoked for a couple years in teens, <ppd, 6 beers daily Past Drug Use History: None Reported - Past Family History Mother Family Medical History: No Reported History General Exam - General Exam Comments Initial Comments: GENERAL: The patient is well nourished and well hydrated. VITAL SIGNS: Heart rate, blood pressure, respiratory rate reviewed as recorded in nurse's notes. EYES: Pupils are round and reactive. Extraocular movements are intact. No conjunctival / lid redness or swelling. ENT: No external evidence of injury, swelling, or ecchymosis. Airway is patent. Throat is clear. NECK: Nontender. No swelling or evidence of injury. No subcutaneous emphysema. Trachea is midline. No thyroid mass. HEART: Regular rate and rhythm. Good peripheral pulses. LUNGS/CHEST: Breath sounds clear and equal bilaterally. No rales, rhonchi, or wheezes. No ecchymosis, subcutaneous emphysema, or tenderness. ABDOMEN: Abdomen soft without tenderness. No palpable masses or organomegaly. No peritoneal signs. No abdominal wall swelling or ecchymosis. EXTREMITIES: No extremity tenderness. Normal muscle tone and function. No thoracolumbar tenderness. NEUROLOGIC: Sensation is grossly intact. Cranial nerve exam reveals face is symmetrical, tongue is midline, speech is clear. SKIN: No abrasions or ecchymosis is noted. No induration or masses noted. PSYCHIATRIC: Alert and oriented. Appropriate behavior and judgment. Limitations: no limitations Course Vital Signs 06/12/22 06/12/22 13:42 13:49 Temperature 99.8 F H Pulse Rate 90 Respiratory 18 Rate Blood Pressure 115/79 O2 Sat by Pulse 95 Oximetry Chest Pain MDM - MDM The patient was seen and examined. All diagnostics are reviewed. Reports were reviewed from [facility] with above noted results. The patient is co ntinued on his Cardizem drip. Report from ER physician at [place] relates that they tried to take him off the Cardizem drip and he went back into atrial fibrillation with rapid ventricular response at a rate of approximately 150. He does voice improvement currently. The repeat troponin is ordered and is pending. The EKG from the sending facility does show a normal sinus rhythm at a rate of 74. There is no acute ST-T wave changes noted. The CT interval is 163, QRS duration is 87, and the QTc interval is 424. The repeat EKG later on and shows atrial fibrillation with a heart rate of 103. This does not show any acute ST-T wave changes. The QRS duration is 85 and the QTC intervals 452 There is A repeat EKG is ordered and is pending. Case is discussed with Dr. Pino from internal medicine and he is agreeable with admission. A page was placed to cardiology and the care transition coordinator is currently in a heart cath procedure and will call back afterwards. The patient remains stable but it is felt as though he would require admission to telemetry unit for further evaluation and treatment. He is on blood thinners already so heparin was not initiated. Approximately 30 minutes critical care time is utilized and the treatment of the patient. Case was eventually discussed with Dr. Vargas from cardiology to make aware of the case. His EKG does come back showing atrial flutter at a rate of 78. There is no ST elevation identified. The QRS duration was 90 and the QTC intervals 402. Disposition Clinical Impression: Atrial fibrillation with rapid ventricular response, Pleuritic chest pain, Elevated troponin, History of cardiac radiofrequency ablation Disposition: ADMITTED IP TO THIS HOSP Condition: Fair Is patient prescribed a controlled substance at d/c from ED?: No Time of Disposition: 14:41 Decision Date: 06/12/22 Decision Time: 14:41
--- NOTE | 2022-06-12 16:30 | P.HPIM ---
History of Present Illness 66-year-old male came to the hospital, with complaints of palpitations and a pressure-like chest pain, patient was seen at [facility] and found to have a troponin of 9 was subsequently transferred here second troponin was 6 and 31 and this hospital was around 3 patient is presently on IV heparin CT angios number of the chest was done which did not show any pulmonary embolism. Patient had a history of atrial fibrillation for which patient underwent ablation couple days ago which probably is responsible for troponin elevation. She does have history of coronary artery disease with the cardiac catheterization and stents about 7 in the past. REVIEW OF SYSTEMS: CONSTITUTIONAL: No fever, no malaise, no fatigue. HEENT: No recent visual problems or hearing problems. Denied any sore throat. CARDIOVASCULAR: No , orthopnea, PND, no syncope. PULMONARY: No shortness of breath, no cough, no hemoptysis. GASTROINTESTINAL: No diarrhea, no nausea, no vomiting, no abdominal pain. NEUROLOGICAL: No headaches, no weakness, no numbness. HEMATOLOGICAL: Denies any bleeding or petechiae. GENITOURINARY: Denies any burning micturition, frequency, or urgency. MUSCULOSKELETAL/RHEUMATOLOGICAL: Denies any joint pain, swelling, or any muscle pain. ENDOCRINE: Denies any polyuria or polydipsia. The rest of the 14-point review of systems is negative. PHYSICAL EXAMINATION: GENERAL: The patient is alert and oriented x3, not in any acute distress. Well developed, well nourished. HEENT: Pupils are round and equally reacting to light. EOMI. No scleral icterus. No conjunctival pallor. Normocephalic, atraumatic. No pharyngeal erythema. No thyromegaly. CARDIOVASCULAR: S1 and S2 present. No murmurs, rubs, or gallops. Irregularly irregular rate controlled PULMONARY: Chest is clear to auscultation, no wheezing or crackles. ABDOMEN: Soft, nontender, nondistended, normoactive bowel sounds. No palpable organomegaly. MUSCULOSKELETAL: No joint swelling or deformity. EXTREMITIES: No cyanosis, clubbing, or pedal edema. NEUROLOGICAL: Gross neurological examination did not reveal any focal deficits. SKIN: No rashes. Assessment and plan -Atrial fibrillation with rapid unclear rate patient is on anticoagulation with L echo is which is being continued patient is also on metoprolol. Patient had a recent ablation . Patient is presently on 50 mg/h of Cardizem. Patient is feeling better now. 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 diverticulitis, supposed to use CPAP, see Dr Avery H & P History of Any Multi-Drug Resistant Organisms: None Reported Past Surgical History: Heart Catheterization With Stent Additional Past Surgical History / Comment(s): 7 stents total, varicose vein stripping, colonoscopy Past Anesthesia/Blood Transfusion Reactions: No Reported Reaction Date of Last Stent Placement:: 2013 Past Psychological History: No Psychological Hx Reported Smoking Status: Former smoker Past Alcohol Use History: Daily Additional Past Alcohol Use History / Comment(s): smoked for a couple years in teens, <ppd, 6 beers daily Past Drug Use History: None Reported - Past Family History Mother Family Medical History: No Reported History Medications and Allergies Home Medications Medication Instructions Recorded Confirmed Type Apixaban [Eliquis] 5 mg PO BID 07/11/18 06/12/22 History Multivitamin [Men's Multi-Vitamin] 1 tab PO DAILY 07/11/18 06/12/22 History Turmeric Root Extract [Turmeric] 500 mg PO DAILY 07/11/18 06/12/22 History Ubidecarenone [Co Q-10] 100 mg PO DAILY 07/11/18 06/12/22 History L.acidoph,Paracasei, B.lactis 1 cap PO DAILY 06/08/22 06/12/22 History [Probiotic] Cholecalciferol [Vitamin D3 (25 50 mcg PO DAILY 06/12/22 06/12/22 History Mcg = 1000 Iu)] Rosuvastatin [Crestor] 20 mg PO HS 06/12/22 06/12/22 History Allergies Allergy/AdvReac Type Severity Reaction Status Date / Time No Known Allergies Allergy Verified 06/12/22 14:56 Physical Exam Vitals: Vital Signs Temp Pulse Resp BP Pulse Ox 06/12/22 13:49 99.8 F H 06/12/22 13:42 90 18 115/79 95 Intake and Output 06/12/22 06/12/22 06/12/22 06:59 14:59 22:59 Other: Weight 99.79 kg Results Labs: Abnormal Lab Results - Last 24 Hours (Table) 06/12/22 Range/Units 14:34 Troponin I 3.820 H* (0.000-0.034) ng/mL
--- NOTE | 2022-06-12 18:37 | P.CRDCN ---
History of Present Illness Consult date: 06/12/22 History of present illness: History of Present Illness: The patient is a 66-year-old male with a known history of CAD, atrial fibrillation underwent ablation of his atrial fibrillation on , was sent home yesterday, during the night he woke up with palpitation and chest discomfort. Was seen at [facility], his troponin was elevated to 9. He was noted to be in atrial fibrillation. At the time of my evaluation he is pain-free, denies any dyspnea. His ventricular rate is better after starting Cardizem. He denies any further chest discomfort. He denies any PND, orthopnea or peripheral edema. He had a stress test recently that showed no evidence of stress-induced ischemia and he had a normal left ventricle systolic function. He is active physically without any difficulties. He had a prior history of CAD and prior stenting. He stopped smoking over 10 years ago. He has a history of hyperlipidemia. Medications: Crestor 20 mg daily,Eliquis 5 mg twice a day Review of Systems: Respiratory: No history of asthma, bronchitis or recent cough. GI: No nausea or vomiting . No history of peptic ulcer disease. No recent GI bleed. : No hematuria or dysuria. Nervous System: No stroke or seizure. Physical Examination: 66-year-old male, alert and oriented not in distress ,Blood pressure 119/60, Heart rate 80 Head: Normocephalic. Eyes: Sclerae nonicteric. Neck: Good carotid upstroke, no bruit, no jugular venous distention. Lungs: Clear to auscultation. Heart: Irregular rate and rhythm, S1-S2, no S3, no rub. Systolic ejection murmur. Abdomen: Soft nontender, positive bowel sounds no organomegaly. Extremities: No edema, intact distal pulses. Labs: Troponin 3.8 and 3.6. EKG: Atrial fibrillation with rapid ventricular response and nonspecific ST-T wave changes Impression: 1. Recurrent atrial fibrillation post ablation 2. Elevated troponin most likely secondary to the ablation, no evidence to suggest acute ischemic event 3. History of hyperlipidemia 4. History of CAD with prior stenting Plan: 1. Resume anticoagulation 2. Add beta trev 3. Obtain an echocardiogram with Doppler 4. And follow EKG 5. Depending on his progress further recommendations will be made, thank you for this consult we will follow with you. Past Medical History Past Medical History: Atrial Fibrillation, Hyperlipidemia, Hypertension, Osteoarthritis (OA), Sleep Apnea/CPAP/BIPAP Additional Past Medical History / Comment(s): hx. diverticulitis, supposed to use CPAP, see Dr Avery H & P History of Any Multi-Drug Resistant Organisms: None Reported Past Surgical History: Heart Catheterization With Stent Additional Past Surgical History / Comment(s): 7 stents total, varicose vein stripping, colonoscopy Past Anesthesia/Blood Transfusion Reactions: No Reported Reaction Date of Last Stent Placement:: 2013 Past Psychological History: No Psychological Hx Reported Smoking Status: Former smoker Past Alcohol Use History: Daily Additional Past Alcohol Use History / Comment(s): smoked for a couple years in teens, <ppd, 6 beers daily Past Drug Use History: None Reported - Past Family History Mother Family Medical History: No Reported History Medications and Allergies Home Medications Medication Instructions Recorded Confirmed Type Apixaban [Eliquis] 5 mg PO BID 07/11/18 06/12/22 History Multivitamin [Men's Multi-Vitamin] 1 tab PO DAILY 07/11/18 06/12/22 History Turmeric Root Extract [Turmeric] 500 mg PO DAILY 07/11/18 06/12/22 History Ubidecarenone [Co Q-10] 100 mg PO DAILY 07/11/18 06/12/22 History L.acidoph,Paracasei, B.lactis 1 cap PO DAILY 06/08/22 06/12/22 History [Probiotic] Cholecalciferol [Vitamin D3 (25 50 mcg PO DAILY 06/12/22 06/12/22 History Mcg = 1000 Iu)] Rosuvastatin [Crestor] 20 mg PO HS 06/12/22 06/12/22 History Allergies Allergy/AdvReac Type Severity Reaction Status Date / Time No Known Allergies Allergy Verified 06/12/22 14:56 Physical Exam Vitals: Vital Signs Temp Pulse Pulse Resp BP BP Pulse Ox 06/12/22 18:28 83 18 119/67 97 06/12/22 13:49 99.8 F H 06/12/22 13:42 90 18 115/79 95 Intake and Output 06/12/22 06/12/22 06/12/22 06:59 14:59 22:59 Other: Weight 99.79 kg Results Cardiac Enzymes 06/12/22 06/12/22 Range/Units 14:34 15:59 Troponin I 3.820 H* 3.680 H* (0.000-0.034) ng/mL Current Medications Generic Name Dose Route Start Last Admin Trade Name Freq PRN Reason Stop Dose Admin Apixaban 5 mg 06/12/22 21:00 Apixaban 5 Mg Tab PO BID [facility] Protocol Atorvastatin Calcium 40 mg 06/12/22 21:00 Atorvastatin 40 Mg Tab PO HS DUNG Cholecalciferol 50 mcg 06/13/22 09:00 Cholecalciferol 25 Mcg (1000 Iu) Tablet PO DAILY DUNG Diltiazem HCl 125 mg/ Sodium 125 mls @ 0 mls/hr 06/12/22 14:00 06/12/22 14:06 Chloride IV 15 mg/hr .Q0M DUNG 15 mls/hr Administration Protocol Per Protocol Lactobacillus Acidoph/Bulgaricus 1 each 06/13/22 09:00 Lactobacillus Acidoph & Bulgar 1 Each Packet PO DAILY DUNG Metoprolol Tartrate 25 mg 06/12/22 21:00 Metoprolol Tartrate 25 Mg Tab PO BID [facility] Multivitamins 1 each 06/13/22 09:00 Multivitamins, Thera 1 Each Tab PO DAILY DUNG Intake and Output 06/12/22 06/12/22 06/12/22 06:59 14:59 22:59 Other: Weight 99.79 kg Patient Weight 06/13/22 06:59 Weight 99.79 kg
[2022-06-12] MEDS: APIXABAN 5 MG TAB PO SCH (20:07)
[2022-06-12] MEDS: METOPROLOL TARTRATE 25 MG TAB PO SCH (20:08)
[2022-06-12] MEDS: ATORVASTATIN 40 MG TAB PO SCH (20:08)
[2022-06-13] MEDS: MULTIVITAMINS, THERA 1 EACH TAB PO SCH (08:48)
[2022-06-13] MEDS: METOPROLOL TARTRATE 25 MG TAB PO SCH ×2 (08:48→20:12)
[2022-06-13] MEDS: APIXABAN 5 MG TAB PO SCH ×2 (08:48→20:12)
[2022-06-13] MEDS: CHOLECALCIFEROL 25 MCG (1000 IU) TABLET PO SCH (08:48)
[2022-06-13] MEDS: LACTOBACILLUS ACIDOPH & BULGAR 1 EACH PACKET PO SCH (08:49)
[2022-06-13] MEDS ORDERED: ASPIRIN 325 MG TAB PO SCH (09:00)
[2022-06-13] MEDS ORDERED: NON FORMULARY DRUG (Turmeric Root Extract [Turmeric] 500 MG Capsule) PO SCH (09:00)
[2022-06-13] MEDS ORDERED: NON FORMULARY DRUG (Ubidecarenone [Co Q-10] 100 MG Capsule) PO SCH (09:00)
[2022-06-13 13:43] LABS: African American GFR (CKD) >90 (>60 ml/min/1.73 sqM); Anion Gap 9 mmol/L; Blood Urea Nitrogen 12 mg/dL (9-20); Calcium 8.6 mg/dL (8.4-10.2); Carbon Dioxide 21 mmol/L (22-30); Chloride 107 mmol/L (98-107); Glucose 137 mg/dL (74-99); Non-African American GFR(CKD) >90 (>60 ml/min/1.73 sqM); Sodium 137 mmol/L (137-145)
[2022-06-13 13:47] LABS: Potassium 4.9 mmol/L (3.5-5.1)
--- NOTE | 2022-06-13 13:51 | P.PN ---
Subjective 66-year-old male came to the hospital, with complaints of palpitations and a pressure-like chest pain, patient was seen at [facility] and found to have a troponin of 9 was subsequently transferred here second troponin was 6 and 31 and this hospital was around 3 patient is presently on IV heparin CT angios number of the chest was done which did not show any pulmonary embolism. Patient had a history of atrial fibrillation for which patient underwent ablation couple days ago which probably is responsible for troponin elevation. She does have history of coronary artery disease with the cardiac catheterization and stents about 7 in the past. 06/13/2022 patient heart rate is well-controlled patient denied any symptoms at this time. Awaiting echocardiogram once echo is done and if it doesn't show any significant abnormality but acute the issues patient will be discharged. Constitutional: Denied any fatigue denied any fever. Cardio vascular: denied any chest pain, palpitations Gastrointestinal denied any nausea vomiting Pulmonary: Denied any shortness of breath cough Neurologic denied any new focal deficits All inpatient medications were reviewed and appropriate changes in these medications as dictated in the interval history and assessment and plan. PHYSICAL EXAMINATION: GENERAL: The patient is alert and oriented x3, not in any acute distress. Well developed, well nourished. HEENT: Pupils are round and equally reacting to light. EOMI. No scleral icterus. No conjunctival pallor. Normocephalic, atraumatic. No pharyngeal erythema. No thyromegaly. CARDIOVASCULAR: S1 and S2 present. No murmurs, rubs, or gallops. Irregularly irregular rate controlled PULMONARY: Chest is clear to auscultation, no wheezing or crackles. ABDOMEN: Soft, nontender, nondistended, normoactive bowel sounds. No palpable organomegaly. MUSCULOSKELETAL: No joint swelling or deformity. EXTREMITIES: No cyanosis, clubbing, or pedal edema. NEUROLOGICAL: Gross neurological examination did not reveal any focal deficits. SKIN: No rashes. Assessment and plan -Atrial fibrillation with rapid unclear rate patient is on anticoagulation with L echo is which is being continued patient is also on metoprolol. Patient had a recent ablation . Patient is off Cardizem patient is on oral metoprolol with well-controlled heart rate pain anticoagulation awaiting echocardiogram -Elevated troponin probably secondary to recent the procedure there is chronic ablation, cardiology evaluated the patient Hyperlipidemia -Sleep apnea uses CPAP machine at home -DVT prophylaxis: On anticoagulation Objective - Vital Signs Vital signs: Vital Signs Temp 98.2 F 06/13/22 08:46 Pulse 58 L 06/13/22 12:41 Resp 16 06/13/22 12:41 BP 128/72 06/13/22 12:41 Pulse Ox 97 06/13/22 12:41 FiO2 21 06/12/22 21:14 Intake & Output 06/12/22 06/13/22 06/13/22 18:59 06:59 18:59 Intake Total 81 120 Balance 81 120 Weight 99.79 kg Intake: Intake, IV Titration 81 Amount Diltiazem 125 mg In 81 Sodium Chloride 0.9% 100 ml @ Per Protocol IV .Q0M [facility] Rx#:[id number] Oral 120 Other: Voiding Method Toilet Toilet Urinal Urinal # Voids 1 1 # Bowel Movements 1 - Labs CBC & Chem 7: 06/13/22 13:03 Labs: Abnormal Lab Results - Last 24 Hours (Table) 06/12/22 06/12/22 06/12/22 Range/Units 14:34 15:59 22:01 Carbon Dioxide (22-30) mmol/L Glucose (74-99) mg/dL Troponin I 3.820 H* 3.680 H* 3.070 H* (0.000-0.034) ng/mL 06/13/22 Range/Units 13:03 Carbon Dioxide 21 L (22-30) mmol/L Glucose 137 H (74-99) mg/dL Troponin I (0.000-0.034) ng/mL
--- NOTE | 2022-06-13 16:09 | P.PN ---
Subjective Progress Note Date: 06/13/22 PROGRESS NOTE The patient is a 66-year-old male with a known history of CAD, atrial fibrillation underwent ablation of his atrial fibrillation on , was sent home yesterday, during the night he woke up with palpitation and chest discomfort. Was seen at [facility], his troponin was elevated to 9. He was noted to be in atrial fibrillation. At the time of my evaluation he is pain-free, denies any dyspnea. His ventricular rate is better after starting Cardizem. He denies any further chest discomfort. He denies any PND, orthopnea or peripheral edema. He had a stress test recently that showed no evidence of stress-induced ischemia and he had a normal left ventricle systolic function. He is active physically without any difficulties. He had a prior history of CAD and prior stenting. He stopped smoking over 10 years ago. He has a history of hyperlipidemia. June 13: He is back in sinus mechanism, he feels well. He denies any chest discomfort him a dizziness or palpitations. He denies any nausea or vomiting. He has been ambulating without difficulties. He is back on anticoagulation. Medications: Metoprolol 25 mg twice a day, Lipitor 40 mg daily, Eliquis 5 mg twice a day PHYSICAL EXAMINATION: Blood pressure 128/70 heart rate 60 LUNGS: Clear to auscultation HEART: Regular rate and rhythm, S1, S2. No S3. systolic ejection murmur ABDOMEN: Soft, nontender, no organomegaly EXTREMETIES: No edema LAB: Potassium 4.9, BUN 12, creatinine 0.7 IMPRESSION: 1. Paroxysmal atrial fibrillation, back in sinus mechanism post-ablation 2. Acute chest discomfort, elevated troponin related to the ablation, no evidence to suggest acute coronary syndrome 3. History of CAD appears to be stable 4. Hyperlipidemia PLAN: 1. Continue present therapy 2. Obtain an echocardiogram in the morning to rule out pericardial effusion 3. Of no evidence of effusion and remains stable expect discharge home tomorrow 4. Follow up as outpatient with Dr. Avery Objective - Vital Signs Vital signs: Vital Signs Temp 98.2 F 06/13/22 08:46 Pulse 58 L 06/13/22 12:41 Resp 16 06/13/22 12:41 BP 128/72 06/13/22 12:41 Pulse Ox 97 06/13/22 12:41 FiO2 21 06/12/22 21:14 Intake & Output 06/12/22 06/13/22 06/13/22 18:59 06:59 18:59 Intake Total 81 120 Balance 81 120 Weight 99.79 kg Intake: Intake, IV Titration 81 Amount Diltiazem 125 mg In 81 Sodium Chloride 0.9% 100 ml @ Per Protocol IV .Q0M DUNG Rx#:[id number] Oral 120 Other: Voiding Method Toilet Toilet Urinal Urinal # Voids 1 1 # Bowel Movements 1 - Labs CBC & Chem 7: 06/13/22 13:03 Labs: Abnormal Lab Results - Last 24 Hours (Table) 06/12/22 06/12/22 06/13/22 Range/Units 15:59 22:01 13:03 Carbon Dioxide 21 L (22-30) mmol/L Glucose 137 H (74-99) mg/dL Troponin I 3.680 H* 3.070 H* (0.000-0.034) ng/mL
[2022-06-13] MEDS: ATORVASTATIN 40 MG TAB PO SCH (20:12)
[2022-06-14 04:06] VITALS: PULSE 56; RESP 18
[2022-06-14 08:04] VITALS: TEMP 98.3
[2022-06-14] MEDS: CHOLECALCIFEROL 25 MCG (1000 IU) TABLET PO SCH (08:05)
[2022-06-14] MEDS: MULTIVITAMINS, THERA 1 EACH TAB PO SCH (08:05)
[2022-06-14] MEDS: LACTOBACILLUS ACIDOPH & BULGAR 1 EACH PACKET PO SCH (08:05)
[2022-06-14] MEDS: METOPROLOL TARTRATE 25 MG TAB PO SCH (08:05)
[2022-06-14] MEDS: APIXABAN 5 MG TAB PO SCH (08:06)
--- NOTE | 2022-06-14 10:03 | P.PN ---
Subjective PROGRESS NOTE The patient is a 66-year-old male with a known history of CAD, atrial fibrillation underwent ablation of his atrial fibrillation on , was sent home yesterday, during the night he woke up with palpitation and chest discomfort. Was seen at [facility], his troponin was elevated to 9. He was noted to be in atrial fibrillation. At the time of my evaluation he is pain-free, denies any dyspnea. His ventricular rate is better after starting Cardizem. He denies any further chest discomfort. He denies any PND, orthopnea or peripheral edema. He had a stress test recently that showed no evidence of stress-induced ischemia and he had a normal left ventricle systolic function. He is active physically without any difficulties. He had a prior history of CAD and prior stenting. He stopped smoking over 10 years ago. He has a history of hyperlipidemia. June 13: He is back in sinus mechanism, he feels well. He denies any chest discomfort him a dizziness or palpitations. He denies any nausea or vomiting. He has been ambulating without difficulties. He is back on anticoagulation. 06/14 Patient seen and examined. Patient denies any chest pain or pressure. Denies any shortness breath. States he is walking the halls without any difficulty. Awaiting 2-D echo. PHYSICAL EXAMINATION: LUNGS: Clear to auscultation HEART: Regular rate and rhythm, S1, S2. No S3. systolic ejection murmur ABDOMEN: Soft, nontender, no organomegaly EXTREMETIES: No edema IMPRESSION: 1. Paroxysmal atrial fibrillation, back in sinus mechanism post-ablation 2. Acute chest discomfort, elevated troponin related to the ablation, no evidence to suggest acute coronary syndrome 3. History of CAD appears to be stable 4. Hyperlipidemia PLAN: A ramírez clinically appears to be doing well. Check 2-D echo for completeness and if no effusion and preserved EF patient may be discharged home with outpatient follow-up with Dr. Avery scheduled for 06/17. Objective - Vital Signs Vital signs: Vital Signs Temp 98.3 F 06/14/22 08:01 Pulse 56 L 06/14/22 09:51 Resp 18 06/14/22 09:51 BP 128/81 06/14/22 08:01 Pulse Ox 95 06/14/22 08:01 FiO2 21 06/12/22 21:14 Intake & Output 06/13/22 06/14/2222 18:59 06:59 18:59 Intake Total 240 118 Balance 240 118 Intake: Oral 240 118 Other: Voiding Method Toilet Toilet Toilet Urinal Urinal Urinal # Voids 1 1 # Bowel Movements 1 - Labs CBC & Chem 7: 06/13/22 13:03 Labs: Abnormal Lab Results - Last 24 Hours (Table) 06/13/22 Range/Units 13:03 Carbon Dioxide 21 L (22-30) mmol/L Glucose 137 H (74-99) mg/dL
[2022-06-14 13:20] VITALS: BP 131/76
[2022-06-14] MEDS ORDERED: COLCHICINE 0.6 MG EACH PO SCH (13:30)
[2022-06-14 15:08] LABS: Chol/HDL Ratio 3.08 Ratio; LDL Cholesterol,Calculated 73.2 mg/dL (0.0-131.0)
--- NOTE | 2022-06-15 08:31 | CA ---
Transthoracic Echo Report Name: Kasi Hernandez Age: 66 Gender: M : 1955 Exam Date: 06/14/2022 13:46 Exam Location: [facility] [facility] Ht (in): 67 Wt (lb): 220 Ordering Physician: Jessi Vargas MD ([id number]) Attending/Referring Phys: Reptile Farmer Maegan Hylton RDCS Procedure CPT: Indications: afib Cardiac Hx: Technical Quality: Contrast 1: Total Dose (mL): Contrast 2: Total Dose (mL): MEASUREMENTS (Male / Female) Normal Values 2D ECHO LV Diastolic Diameter PLAX 5.4 cm 4.2 - 5.9 / 3.9 - 5.3 cm LV Systolic Diameter PLAX 3.4 cm IVS Diastolic Thickness 0.8 cm 0.6 - 1.0 / 0.6 - 0.9 cm LVPW Diastolic Thickness 0.9 cm 0.6 - 1.0 / 0.6 - 0.9 cm LV Relative Wall Thickness 0.3 RV Internal Dim ED PLAX 3.5 cm LA Systolic Diameter LX 4.1 cm 3.0 - 4.0 / 2.7 - 3.8 cm LA Volume 67.3 cm??? 18 - 58 / 22 - 52 cm??? M-MODE Aortic Root Diameter MM 2.5 cm LA Systolic Diameter MM 4.7 cm LA Ao Ratio MM 1.9 MV E Point Septal Separation 0.5 cm AV Cusp Separation MM 1.8 cm DOPPLER MV Area PHT 3.3 cm??? Mitral E Point Velocity 67.0 cm/s Mitral A Point Velocity 61.4 cm/s Mitral E to A Ratio 1.1 MV Deceleration Time 230.7 ms MV E' Velocity 7.7 cm/s Mitral E to MV E' Ratio 8.7 FINDINGS Left Ventricle Normal left ventricular size, wall thickness, systolic function with no obvious regional wall motion abnormalities. Left ventricular ejection fraction is estimated at 55%. Right Ventricle The right ventricle is normal in size and function. Right ventricular systolic pressure within normal limits. Right Atrium The right atrium is normal in size. Left Atrium Mildly increased left atrial volume. Mildly increased left atrial area. Mitral Valve Structurally normal mitral valve without significant stenosis or prolapse. There is mild mitral regurgitation. Aortic Valve Structurally normal aortic valve without significant sclerosis or stenosis. There is no aortic regurgitation. Tricuspid Valve Structurally normal tricuspid valve without significant stenosis. Pulmonary artery systolic pressure is normal. Pulmonic Valve Structurally normal pulmonic valve without significant stenosis. There is no pulmonic regurgitation. Pericardium Normal pericardium without effusion. Aorta Normal aortic root dimension. CONCLUSIONS Normal left ventricular dimension and systolic function Previewed by: Dr. Kristian Mclaughlin MD (Electronically Signed) Final Date: 15 June 2022 08:30
--- NOTE | 2022-06-16 04:18 | P.DS ---
Providers Date of admission: 06/12/22 14:50 Expected date of discharge: 06/14/22 Attending physician: Jude Pino MD Consults: 06/12/22 14:50 Consult Physician Urgent Consulting Provider: Jessi Vargas Consult Reason/Comments: tessy, cp Do you want consulting provider notified?: Yes Primary care physician: Hernán Caban Hospital Course: Final diagnosis -Atrial fibrillation with rapid ventricular rate, Patient had a recent ablation . Currently rate controlled -Elevated troponin probably secondary to recent ablation procedure -Hyperlipidemia -Sleep apnea uses CPAP machine at home -DVT prophylaxis Discharge disposition Patient is being discharged in a stable condition with guarded prognosis to home. Patient will follow-up with Dr. Caban in the outpatient setting upon discharge. Patient is to continue with current cardiac medications and also being started on colchicine 0.6 mg daily for the next 2 weeks per cardiology and will follow-up with Dr. Avery as scheduled. Total time taken is greater than 35 minutes. Hospital course This is a 66-year-old male who was recently admitted with atrial fibrillation RVR and underwent recent ablation with cardiology. Cardiology evaluated the patient with medications adjustments in being started on colchicine per cardiology recommendations for the next 2 weeks and close outpatient follow-up. Patient currently awaiting a 2-D echo also discussed with Dr. Avery and will be following up with outpatient echo in the office. Cleared by cardiology for discharge patient will like to go home. Currently no reports of chest pain, shortness of breath, or palpitations. Patient is afebrile. No reports of nausea or vomiting and patient is tolerating diet. Patient will be discharged home today. Physical exam: Gen: This is a 66-year-old male who is awake, alert and oriented 3, well- developed, well-nourished, obese HEENT: Head is atraumatic, normocephalic. Pupils equal, round. Sclerae is anicte dilan. NECK: Supple. No JVD. No lymphadenopathy. No thyromegaly. LUNGS: Clear to auscultation. No wheezes or rhonchi. No intercostal retractions. HEART: S1, S2 are muffled ABDOMEN: Soft. Obese. Bowel sounds are present. No masses. No tenderness. EXTREMITIES: No pedal edema. No calf tenderness. NEUROLOGICAL: Patient is awake, alert and oriented x3. Cranial nerves 2 through 12 are grossly intact. Please refer to medication reconciliation sheet for a list of medications. The impression and plan of care has been dictated by Cristy Johnson, Nurse Practitioner as directed. Dr. Tiago MD I have performed a history and examination and MDM of this patient, discussed the same with the dictator, and agree with the dictator's assessment and plan as written ,documented as a scribe. Based on total visit time, I have performed more than 50% of the visit. Patient Condition at Discharge: Fair Plan - Discharge Summary New Discharge Prescriptions: New Metoprolol Tartrate [Lopressor] 25 mg PO BID #60 tab Colchicine 0.6 mg PO DAILY 14 Days #14 capsule Continue Apixaban [Eliquis] 5 mg PO BID Ubidecarenone [Co Q-10] 100 mg PO DAILY Turmeric Root Extract [Turmeric] 500 mg PO DAILY Multivitamin [Men's Multi-Vitamin] 1 tab PO DAILY L.acidoph,Paracasei, B.lactis [Probiotic] 1 cap PO DAILY Cholecalciferol [Vitamin D3 (25 Mcg = 1000 Iu)] 50 mcg PO DAILY Rosuvastatin [Crestor] 20 mg PO HS Discharge Medication List Apixaban [Eliquis] 5 mg PO BID 07/11/18 [History] Multivitamin [Men's Multi-Vitamin] 1 tab PO DAILY 07/11/18 [History] Turmeric Root Extract [Turmeric] 500 mg PO DAILY 07/11/18 [History] Ubidecarenone [Co Q-10] 100 mg PO DAILY 07/11/18 [History] L.acidoph,Paracasei, B.lactis [Probiotic] 1 cap PO DAILY 06/08/22 [History] Cholecalciferol [Vitamin D3 (25 Mcg = 1000 Iu)] 50 mcg PO DAILY 06/12/22 [History] Rosuvastatin [Crestor] 20 mg PO HS 06/12/22 [History] Metoprolol Tartrate [Lopressor] 25 mg PO BID #60 tab 06/13/22 [Rx] Colchicine 0.6 mg PO DAILY 14 Days #14 capsule 06/14/22 [Rx] Follow up Appointment(s)/Referral(s): Chetan Avery MD [STAFF PHYSICIAN] - 06/17/22 1:00 pm Hernán Caban MD [Primary Care Provider] - 1 Week (please call and make appointment ) Patient Instructions/Handouts: A-fib (Atrial Fibrillation) (DC), Chest Pain (DC) Activity/Diet/Wound Care/Special Instructions: activity limited until follow up follow up with pcp on discharge follow up with cardiology Dr. Avery Continue taking medications as prescribed Discharge Disposition: HOME SELF-CARE
== END 2022-06-14 15:39 | disposition home or self-care (01) | DRG 310 ==
LOC: EC 13:34 → 3SCARD 14:50
PROVIDERS: ADMIT Internal Medicine; ATTEND Internal Medicine
DX: I48.0 Paroxysmal atrial fibrillation (principal); E78.5 Hyperlipidemia, unspecified; Z20.822 Contact with and (suspected) exposure to COVID-19; G47.30 Sleep apnea, unspecified; I48.92 Unspecified atrial flutter; R07.89 Other chest pain; I34.0 Nonrheumatic mitral (valve) insufficiency; R79.89 Other specified abnormal findings of blood chemistry; M19.90 Unspecified osteoarthritis, unspecified site; I10 Essential (primary) hypertension; I25.10 Atherosclerotic heart disease of native coronary artery without angina pectoris; Z79.01 Long term (current) use of anticoagulants; Z87.891 Personal history of nicotine dependence; Z95.5 Presence of coronary angioplasty implant and graft; Z87.19 Personal history of other diseases of the digestive system
CPT/HCPCS: 36415; 80048; 80061; 84484; 87636; 93005; 93306; 94760; 96365; 96366; 99285